=== PATIENT | female | born 1950 | race Caucasian/White ===

== ENCOUNTER 2025-03-06 20:28 | Emergency (ER) | payer MEDICARE ==
[~2025-03-06] VITALS: Ht 139.7 cm; Wt 54.5 kg
[2025-03-06 21:22] LABS: BASOPHILS # (AUTO) 0.1 X10'3 (0-0.2); BASOPHILS % (AUTO) 0.7 % (0-1); EOSINOPHILS # (AUTO) 0.2 X10'3 (0-0.9); EOSINOPHILS % (AUTO) 2.5 % (0-6); HEMOGLOBIN 11.1 g/dl (12.0-16.0); LYMPHOCYTES # (AUTO) 3.2 X10'3 (1.1-4.8); LYMPHOCYTES % (AUTO) 39.2 % (21-51); MEAN CORPUSCULAR HEMOGLOBIN 29.9 PG (27.0-31.0); MEAN CORPUSCULAR HGB CONC 33.6 g/dL (33.0-36.5); MEAN CORPUSCULAR VOLUME 89.1 FL (78-98); MEAN PLATELET VOLUME 6.8 FL (7.4-10.4); MONOCYTES # (AUTO) 0.7 X10'3 (0-0.9); NEUTROPHILS % (AUTO) 49.6 % (42-75); PLATELET COUNT 346 X10'3 (140-440); RED BLOOD COUNT 3.71 X10'6 (4.20-5.60); RED CELL DISTRIBUTION WIDTH 13.9 % (11.5-14.5); WHITE BLOOD COUNT 8.1 X10'3 (4.5-11.0)
[2025-03-06 21:39] LABS: ALANINE AMINOTRANSFERASE 23 U/L (12-78); ALBUMIN 3.6 G/DL (3.4-5.0); ALBUMIN/GLOBULIN RATIO 1.3 (1.1-1.5); ALKALINE PHOSPHATASE 59 IU/L (46-116); ANION GAP 11 (8-16); ASPARTATE AMINO TRANSFERASE 19 U/L (10-37); BILIRUBIN,TOTAL 0.2 MG/DL (0.1-1.0); BLOOD UREA NITROGEN 18 MG/DL (7-18); CALCIUM 8.7 MG/DL (8.5-10.1); CHLORIDE 108 MMOL/L (99-107); CREATININE 0.72 MG/DL (0.40-0.90); GLUCOSE 119 MG/DL (70-104); LIPASE 27 U/L (16-77); POTASSIUM 3.8 MMOL/L (3.5-5.1); SODIUM 142 MMOL/L (135-145); TOTAL CARBON DIOXIDE 23.2 MMOL/L (24-32); TOTAL PROTEIN 6.3 G/DL (6.4-8.2); eCRCL 35 ML/MIN; eGFR 79 ML/MIN
--- NOTE | 2025-03-06 22:26 | Physician Documentation ---
History of Present Illness Chief Complaint: Abdominal Pain Stated Complaint: ABDOMINAL PAIN Time Seen by : 22:26 Mode of Arrival: POV HPI 75-year-old female presents with gallbladder plain. She reports that she has been struggling with her postprandial discomfort for several months and has been diagnosed with biliary colic. She has plans to follow up with Dr. Botello but has been unable to see him. She has now had persistent discomfort for 3 weeks now. She denies any fevers or chills. No nausea or vomiting your symptoms are worsened with lying on her right side Medication Reconciliation Allergies: Coded Allergies: ciprofloxacin (Verified Allergy, Intermediate, JULIAN SYNDROME, FLUSH, PAIN, 03/06/25) fentanyl (Verified Allergy, Intermediate, VOMIT, RASH, ITCHY, 03/06/25) codeine (Verified Allergy, Mild, VOMIT, 03/06/25) meperidine (Verified Allergy, Mild, ITCHY, RASH, 03/06/25) morphine (Verified Allergy, Mild, ITCHING, 03/06/25) Uncoded Allergies: TRAM (Allergy, Mild, 03/06/25) Review of Systems All Other Systems at this time: Reviewed and Negative Constitutional: Denies: fever Physical Exam Vital Signs: Temperature: 98.2, Source: Temporal, Heart Rate: 89, Respiratory Rate: 15, BP: 195/84, Pulse Oximetry: 98, Weight: 54.500 Oxygen Flow Rate: 0 Physical Exam Well-appearing No distress Negative Gregory Positive right upper quadrant Tenderness no guarding no rebound Progress Progress Note I independently interpreted labs today no leukocytosis normal LFTs normal bili normal creatinine Results/Orders Results/Orders Orders - LISA DUMONT MD Urinalysis, Cult If Indicated (03/06/25 20:45) Completed Orders - LISA DUMONT MD Cbc/Diff (03/06/25 20:45) BMP (03/06/25 20:45) Lipase (03/06/25 20:45) CMP (03/06/25 20:45) Vital Signs 03/06/25 03/06/25 03/06/25 20:35 21:17 21:19 Temp 98.2 Pulse 97 89 Resp 16 15 15 B/P (MAP) 179/86 195/84 (121) Pulse Ox 96 98 O2 Flow Rate 0 Laboratory Tests Test 03/06/25 21:08 White Blood Count 8.1 Red Blood Count 3.71 L Hemoglobin 11.1 L Hematocrit 33.0 L Mean Corpuscular Volume 89.1 Mean Corpuscular Hemoglobin 29.9 Mean Corpuscular Hemoglobin Concent 33.6 Red Cell Distribution Width 13.9 Platelet Count 346 Mean Platelet Volume 6.8 L Neutrophils (%) (Auto) 49.6 Lymphocytes (%) (Auto) 39.2 Monocytes (%) (Auto) 8.0 Eosinophils (%) (Auto) 2.5 Basophils (%) (Auto) 0.7 Neutrophils # (Auto) 4.0 Lymphocytes # (Auto) 3.2 Monocytes # (Auto) 0.7 Eosinophils # (Auto) 0.2 Basophils # (Auto) 0.1 CBC Comment Sodium Level 142 Potassium Level 3.8 Chloride Level 108 H Carbon Dioxide Level 23.2 L Anion Gap 11 Blood Urea Nitrogen 18 Creatinine 0.72 Estimated GFR/1.73 m2 79 BUN/Creatinine Ratio 25.0 H Glucose Level 119 H Calcium Level 8.7 Total Bilirubin 0.2 Aspartate Amino Transf (AST/SGOT) 19 Alanine Aminotransferase (ALT/SGPT) 23 Alkaline Phosphatase 59 Total Protein 6.3 L Albumin 3.6 Globulin 2.7 Albumin/Globulin Ratio 1.3 Lipase 27 Chemistry Comments EKG/XRAY/CT/US/VASC/MRI Ultrasound : Impression I independently interpreted ultrasound shows coli lithiasis with stone in the fundus, no cholecystitis, normal common bile duct Medical Decision Making Additional Comments Cholecystitis cholangitis other causes of abdominal pain Departure Disposition: HOME / SELF CARE / HOMELESS Impression: Primary Impression: Biliary colic Additional Instructions: Please return to the emergency department if you develop fever otherwise follow up with your general surgeon Referrals: NO PRIMARY CARE PROVIDER (PCP) Signature Scribe Signature: na Attestation: LISA Morales MD March 06, 2025 22:26
[2025-03-06 22:49] LABS: BILIRUBIN,URINE NEGATIVE (Neg); CLARITY,URINE CLEAR (Clear); COLOR,URINE YELLOW (Yellow); GLUCOSE, URINE NEGATIVE (Neg); KETONES,URINE NEGATIVE (Neg); LEUKOCYTE ESTERASE ,URINE NEGATIVE (Neg); NITRITES, URINE NEGATIVE (Neg); OCCULT BLOOD,URINE NEGATIVE (Neg); PROTEIN,URINE NEGATIVE (Neg); UROBILINOGEN,URINE 0.2 E.U/dL (0.2-1.0)
[2025-03-06 22:59] LABS: UA COLLECTION TYPE CLN CATCH MIDSTREAM
[2025-03-06] MEDS: naproxen 500mg tablet PO ONE (23:01)
[2025-03-07 01:12] VITALS: BP 139/71; PULSE 92; RESP 14; TEMP 97.7; O2SAT 99
--- NOTE | 2025-03-07 01:50 | RADIOLOGY REPORT ---
Clinical History ruq pain Comparison None Without Contrast AVALOSFAVIAN, [id number] Technique: Limited upper abdominal quadrant ultrasound was performed. Interpretation of the ultrasound exam is solely based on the sonographic images submitted by the on-site front end software developer. The radiologist was not present on site and did not scan the patient to confirm findings. Findings: Liver: Diffuse increased hepatic echogenicity. The liver measures 12.5 cm. Hepatopedal portal vein flow Gallbladder: Gallstones. No evidence of intra-or extrahepatic biliary dilatation. Normal gallbladde r wall thickness. No pericholecystic fluid. Negative sono Gregory sign CBD: 1.8 mm Pancreas: Obscured by bowel gas Right kidney: It measures 9 x 5 x 6.5 cm. No shadowing calculi. Normal vascular flow. Impression: Diffuse hepatic fatty infiltration Gallstones with no evidence of intra-or extrahepatic biliary dilatation This report was electronically signed by Radha Bernard MD on 03/07/2025 1:47:41 AM.
== END 2025-03-07 01:15 | disposition home or self-care (01) ==
LOC: ER 20:30
DX: K80.50 Calculus of bile duct without cholangitis or cholecystitis without obstruction (principal); Z88.1 Allergy status to other antibiotic agents; Z88.5 Allergy status to narcotic agent
CPT/HCPCS: 36415; 76700; 80053; 81003; 83690; 85025; 99285

== ENCOUNTER 2025-07-19 12:47 | Outpatient (CLI) | payer MEDICARE ==
[~2025-07-19 12:47] MED LIST: ATOR10TA PO; BENA10TA11; INSU100I8 SQ; INSU100V9 SQ
--- NOTE | 2025-07-19 14:23 | RADIOLOGY REPORT ---
CT CT ABDOMEN PELVIS INDICATION: ABDOMINAL PAIN/BLUGE/S/P ROBO JES NO CONTRAST WITH VALSALVA EXAM DATE: 07/19/2025 01:38 PM COMPARISON: US ULTRASOUND OF ABDOMEN on DOS: 03/11/25, US ULTRASOUND OF ABDOMEN on DOS: 03/06/25 RADIATION DOSE: CTDIvol: 10 mGy, DLP: 504 mGy*cm PROCEDURE: Helical CT images were obtained of the abdomen and pelvis without IV contrast Sagittal and coronal reconstructions are provided. ORAL CONTRAST: None. ADDITIONAL IMAGES / REFORMATS: None All CT scans at this medical facility are performed using dose modulation techniques as appropriate to a performed exam including the following: Automated exposure control was utilized; adjustment of the MA and/or KV according to patient size; and use of iterative reconstruction technique. FINDINGS: LUNG BASE: Normal. LIVER: Normal. GALLBLADDER AND BILIARY TREE: Cholecystectomy clips are seen. No intra- or extrahepatic biliary ductal dilation. PANCREAS: Normal. SPLEEN: Normal. BOWEL: Moderate colonic diverticulosis. Not visualized appendix. A duodenal diverticulum is suspected. ADRENALS: Normal. KIDNEYS AND URETER: Normal. BLADDER: Normal. REPRODUCTIVE ORGANS: Normal. LYMPH NODES:No lymphadenopathy. PERITONEUM: No ascites or free air. No other fluid collection. VESSELS: Scattered atherosclerotic calcifications are noted. RETROPERITONEUM: Normal. ABDOMINAL WALL: Fat containing ventral hernia is noted. BONES: Scattered osseous degenerative changes are noted. IMPRESSION: No acute intraabdominal abnormality. Moderate colonic diverticulosis. A duodenal diverticulum is suspected.
== END 2025-07-19 23:59 | disposition home or self-care (01) ==
LOC: RAD 12:47
PROVIDERS: ATTEND Surgery
DX: K57.30 Diverticulosis of large intestine without perforation or abscess without bleeding (principal); K43.2 Incisional hernia without obstruction or gangrene; R10.9 Unspecified abdominal pain; Z90.49 Acquired absence of other specified parts of digestive tract; K43.9 Ventral hernia without obstruction or gangrene; M47.816 Spondylosis without myelopathy or radiculopathy, lumbar region
CPT/HCPCS: 74176